=== PATIENT | male | born 1985 | race American Indian/Alaskan Native ===

== ENCOUNTER 2022-11-21 14:52 | Emergency (ER) | payer SELFPAY ==
[2022-11-21 17:17] VITALS: BP 117/75
[2022-11-21] MEDS ORDERED: CIPR1SUS8 OT ×3 (17:34→17:46)
[2022-11-21] MEDS ORDERED: CEPH500C PO ×3 (17:34→17:46)
== END 2022-11-21 17:35 | disposition home or self-care (01) ==
LOC: ER 14:52
DX: H65.91 Unspecified nonsuppurative otitis media, right ear (principal); H60.91 Unspecified otitis externa, right ear; Z88.1 Allergy status to other antibiotic agents